=== PATIENT | female | born 1950 | race Two or more races ===

== ENCOUNTER 2019-12-14 06:12 | Day surgery (SDC) | payer MEDICARE, MEDICAID ==
[2019-12-14] VITALS (9 sets, daily range): BP systolic 115–167; BP diastolic 67–88
[~2019-12-14] VITALS: Ht 160 cm; Wt 81.6 kg
[~2019-12-14 06:12] MED LIST: AMBIEN5 MG ORAL; ATENOLOL25 MG ORAL; CELEBREX200 MG ORAL; LOSARTAN POTASS25 MG ORAL
[2019-12-14] MEDS: Tropicamide 1% Opth 15ml Soln RIGHT EYE SCH ×3 (06:36→06:51)
[2019-12-14] MEDS: Phenylephrine 10% Opth Soln 5ml RIGHT EYE SCH ×3 (06:36→06:51)
[2019-12-14] MEDS: Diclofenac Sod 0.1% Op Soln RIGHT EYE SCH ×3 (06:36→06:51)
[2019-12-14] MEDS: Akten 3.5% 1ml Btl RIGHT EYE SCH ×3 (06:37→06:51)
[2019-12-14] MEDS: Vigamox Opth Soln 3ml RIGHT EYE SCH ×3 (06:37→06:51)
[2019-12-14] MEDS ORDERED: EPINEPHrine 1mg/1ml Amp ONE (06:55)
[2019-12-14] MEDS ORDERED: Dexamethasone 4mg/ml vial ONE (06:56)
[2019-12-14] MEDS ORDERED: BSS 500ml btl ONE (06:56)
[2019-12-14] MEDS ORDERED: Lidocaine 1% MPF 10mg/ml 5ml ONE (06:56)
[2019-12-14] MEDS ORDERED: Carbachol 0.01% Op Soln 1.5ml vial ONE (06:56)
[2019-12-14] MEDS ORDERED: Sodium Hyaluronate 10 mg/ml 0.85ml ONE (06:57)
[2019-12-14] MEDS ORDERED: BSS 15ml BTL ONE (06:57)
[2019-12-14] MEDS ORDERED: Povidone-Iodine 5% opth solution ONE (06:57)
[2019-12-14] MEDS ORDERED: Tetracaine 0.5% Opth 4ml Soln ONE (06:57)
[2019-12-14] MEDS ORDERED: Sterile Water Irrig 1000ml IRRIG ONE (07:00)
[2019-12-14] MEDS ORDERED: NS Irrig 1000ml ONE (07:00)
[2019-12-14] MEDS ORDERED: LR 1000ml ONE (07:00)
[2019-12-14] MEDS ORDERED: Propofol 200mg/20ml IV ONE (07:00)
[2019-12-14] MEDS ORDERED: fentaNYL 100 mcg/2 mL IV ONE (07:02)
[2019-12-14] MEDS ORDERED: Midazolam 2mg/2ml Inj ONE (07:03)
[2019-12-14] MEDS ORDERED: LR 1000ml 1,000 ML IVLG SCH (07:46)
--- NOTE | 2019-12-14 07:46 | Anethesia Preoperative Eval ---
Anesthesia Pre-op PMH/ROS General Date of Evaluation: Dec 14, 2019 Time of Evaluation: 07:12 Anesthesiologist: Rica ASA Score: ASA 2 Mallampati Score Class I : Soft palate, uvula, fauces, pillars visible Class II: Soft palate, uvula, fauces visible Class III: Soft palate, base of uvula visible Class IV: Only hard plate visible Mallampati Classification: Class II Surgeon: Nickie Diagnosis: R eye cataract Surgical Procedure: Cataract extraction Anesthesia History: none Family History: no anesthesia problems Allergies: Coded Allergies: No Known Allergies (Unverified , 12/14/19) Medications: see eMAR Patient NPO?: Yes Past Medical History Cardiovascular: Reports: HTN - stable; Denies: CAD, ID, valve dz, arrhythmia, other Pulmonary: Denies: asthma, COPD, DENIA, other Gastrointestinal/Genitourinary: Reports: GERD; Denies: CRI, ESRD, other Neurologic/Psychiatric: Denies: dementia, CVA, depression/anxiety, TIA, other Endocrine: Denies: DM, hypothyroidism, steroids, other HEENT: Reports: cataract (L), cataract (R); Denies: glaucoma, KLAMATH (L), KLAMATH (R), other Hematology/Immune: Denies: anemia, DVT, bleeding disorder, other Musculoskeletal/Integumentary: Reports: OA; Denies: RA, DJD, DDD, edema, other Other: other - oveerweight PMH Narrative: as above PSxH Narrative: Hysterectomy Anesthesia Pre-op Phys. Exam Physician Exam Last Vital Signs Date Time Temp Pulse Resp B/P (MAP) Pulse Ox O2 Delivery O2 Flow Rate FiO2 12/14/19 06:49 Room Air 12/14/19 06:46 98.8 65 18 167/88 95 Constitutional: NAD Neurologic: CN 2-12 intact Cardiovascular: RRR, no M/R/G Respiratory: CTA Gastrointestinal: S/NT/ND Airway Exam Mallampati Score: Class II MO: limited Neck: stiff ROM: limited Teeth: missing Dentures: no upper, no lower Anesthesia Pre-op A/P Labs see chart Studies Pre-op Studies: EKG - Sr Risk Assessment & Plan Assessment: ASA 2 Plan: MAC Status Change Before Surgery: No Pre-Antibiotics Drug: none Vishal Strauss MD Dec 14, 2019 07:46
[2019-12-14] MEDS ORDERED: fentaNYL 100 mcg/2 mL IV PRN (08:00)
--- NOTE | 2019-12-14 08:06 | Immediate Post-Op Evaluation ---
Immediate Post-Op Evalulation Immediate Post-Op Evalulation Procedure: R eye cataract extraction with IOL Date of Evaluation: Dec 14, 2019 Time of Evaluation: 08:05 IV Fluids: 200 Blood Products: none Estimated Blood Loss: none Urinary Output: none Blood Pressure Systolic: 134 Blood Pressure Diastolic: 76 Pulse Rate: 72 Respiratory Rate: 20 O2 Sat by Pulse Oximetry: 98 Temperature (Fahrenheit): 97.5 Pain Score (1-10): 1 Nausea: No Vomiting: No Complications none Patient Status: awake, patent, none Hydration Status: adequate Vishal Strauss MD Dec 14, 2019 08:06
--- NOTE | 2019-12-14 08:07 | Pre-Procedure Note/Attestation ---
Pre-Procedure Note/Attestation Complete Prior to Procedure Planned Procedure: right Procedure Narrative: 1-Cataract extraction, right eye 2- Limbal relaxation incision ( LRI ), right eye Indications for Procedure Pre-Operative Diagnosis: 1- Catarct right eye. 2- Astigmatism , right eye. Attestation I attest that I discussed the nature of the procedure; its benefits; risks and complications; and alternatives (and the risks and benefits of such alternatives ), prior to the procedure, with the patient (or the patient's legal customer loyalty representative). I attest that, if there was a reasonable possibility of needing a blood transfusion, the patient (or the patient's legal customer loyalty representative) was given the [place] Department [employer] Services standardized written summary, pursuant to the Alli Friedenswald Blood Safety Act ([place] Health and Safety Code # 1645, as amended). I attest that I re-evaluated the patient just prior to the surgery and that there has been no change in the patient's H&P, except as documented below: Aftab Fu MD Dec 14, 2019 08:07
--- NOTE | 2019-12-14 08:10 | Discharge Summary ---
Discharge Summary Discharge Summary Discharge Summary DATE OF ADMISSION: 12/14/2019 DATE OF DISCHARGE:12/14/2019 REASON FOR HOSPITALIZATION: 1- cataract right eye 2- Astigmatism right eye SURGERY PERFORMED: 1- Cataract extraction 2- LRI right eye CONDITION IN THE HOSPITAL:The patient tolerated the surgery without complications. DISCHARGE CONDITION: The patient was stable at discharge. DISCHARGE MEDICATIONS: 1. Vigamox eye drops one drop q.i.d, OD 2. Prednisolone one drop q.i.d, OD 3. Prolensa QD, OD POSTOPERATIVE ORDERS: The patient has to rest at home. No bending, No lifting, No watching Television tonight. POSTOPERATIVE FOLLOW UP: The patient will be followed in my office tomorrow morning at 7 o'clock. Aftab Fu MD Dec 14, 2019 08:10
--- NOTE | 2019-12-14 08:13 | Brief Operative Note ---
Immediate Post Operative Note Operative Note Chief Complaint: Blurry right eye, difficulty driving Pre-op Diagnosis: 1- Catarct right eye. 2- Astigmatism , right eye. Procedure: 1- Cataract extraction with phaco and PC IOL implantation, right eye 2- Limbal Relaxing Incision ( LRI ), right eye. Post-op Diagnosis: same as pre-op Surgeon: Aftab Fu MD Set Up Mechanic Crown Assembly Machine: None Additional Surgeons: None Anesthesiologist: Dr. Strauss Anesthesia: MAC Specimen: none Complications: none Condition: stable Fluids: 300ml Estimated Blood Loss: none Drains: none Implant(s) used?: Yes - Monofocal PC IOL implanted in the right eye without complication Aftab Fu MD Dec 14, 2019 08:13
[2019-12-14] MEDS ORDERED: acetaZOLAMIDE 125mg tab ORAL SCH (08:30)
--- NOTE | 2019-12-14 09:17 | 48 Hour Post Anesthesia Eval ---
Post Anesthesia Evaluation Procedure: R eye cataract extraction with IOL Date of Evaluation: Dec 14, 2019 Time of Evaluation: 09:16 Blood Pressure Systolic: 132 0: 74 Pulse Rate: 68 Respiratory Rate: 20 Temperature (Fahrenheit): 97.6 O2 Sat by Pulse Oximetry: 98 Airway: patent Nausea: No Vomiting: No Pain Intensity: 1 Hydration Status: adequate Cardiopulmonary Status: stable Mental Status/LOC: patient returned to baseline Follow-up Care/Observations: n/a Post-Anesthesia Complications: none Follow-up care needed: ready to discharge Vishal Strauss MD Dec 14, 2019 09:17
--- NOTE | 2019-12-15 16:00 | Operative Note - Dictated ---
DATE OF OPERATION: 12/14/2019 FACILITY: [facility]. SURGEON: Aftab Fu M.D. PROJ MGR: None. ANESTHESIOLOGIST: Vishal Strauss M.D. ANESTHESIA: Monitored anesthesia care (MAC). PREOPERATIVE DIAGNOSES: 1. Cataract, right eye. 2. Astigmatism, right eye. POSTOPERATIVE DIAGNOSES: 1. Cataract, right eye. 2. Astigmatism, right eye. SURGERY PERFORMED: 1. Cataract extraction with phacoemulsification and posterior chamber intraocular lens implantation, right eye. 2. Limbal relaxing incision (LRI) right eye. INDICATION FOR SURGERY: The patient is a 69-year-old lady with history of high blood pressure and cancer. The patient is not a smoker, not a drinker. The patient is , is retired, and lives with her family. She has had ovarian cyst removal in 1995. She is taking medications including Celebrex 200 mg, hydroxyzine hydrochloride 10 mg, and is also on hydrochlorothiazide 50/12.5 mg, 10 mg, gabapentin 300 mg. She has no allergies to any medications. She is complaining of blurred vision in the right eye. On examination of the right eye, the cornea is clear. Anterior chamber is clean and quiet, bit shallow. Pupillary reflexes normal. There is no RAPD. There is 4+ nuclear sclerosis and 2+ cortical cataract. Funduscopy showed normal optic disc. There are some confluent drusen in both macula. Peripheral retina is flat. To improve her vision in the right eye, the cataract has to be removed, posterior chamber intraocular lens has to be implanted, and astigmatism has to be addressed as well. INFORMED CONSENT: The nature of the surgery, risks, benefits, alternatives, and potential complications were all explained in detail to the patient in her language, Maori through a business systems developer. The potential complications including, but not limited to bleeding, infection, posterior capsular rupture, lens subluxation, flat anterior chamber, iris prolapse, uveitis, corneal edema, macular edema, endophthalmitis, retinal detachment, loss of vision, loss of the eye, and even were all explained in detail to the patient. The patient voiced her understanding and accepted all the complications. The alternatives including accommodating lens, multifocal lens, toric lens, and conventional cataract surgery with limbal relaxing incision were all explained in detail to the patient. The patient voiced understanding. The patient elected to have only conventional cataract surgery with limbal relaxing incision. Then, she signed the consent form, which is in the chart. DESCRIPTION OF SURGERY AND FINDINGS: Following that, the patient was taken to the operation room in stable condition. Lidocaine gel Akten 3.5% were applied to the conjunctiva of the right eye. IV sedation was given by the anesthesiologist, Dr. Strauss. After adequate anesthesia and sedation had been achieved, the right eye was prepped and draped in a sterile fashion for intraocular surgery. Following that, a speculum was placed in the right eye. Before the patient was taken to the operation room, the cornea was marked at 180 and 90 degree meridian. In the operating room, using a corneal marker and marking pen, the steep meridian of the cornea was marked. Following that, we used a ishaan knife with 550 micron blade, two parallel incisions were placed on the steep meridian to treat the astigmatism. Following that, using a Super Sharp knife, a clear corneal side port was created. 1% lidocaine without preservative (MPF) was injected into the anterior chamber. Viscoelastic agent, Healon was injected into the anterior chamber. Following that, using a 2.8 mm keratome, clear corneal temporal keratotomy was performed. Following that, viscoelastic agent was injected into the anterior chamber again. Under the viscoelastic agent, an anterior capsulotomy was performed in the fashion of capsulorrhexis beautifully. Following that, whole viscoelastic agent was removed from the anterior chamber. Following that, using balanced salt solution, hydrodissection and hydrodelineation was performed and the nucleus was freed. Following that, viscoelastic agent Healon was injected into the anterior chamber to protect the endothelium of the cornea. Following that, using a phacoemulsification machine in the fashion of horizontal chop, the nucleus was removed in toto. Cortical material was removed from the capsular bag using irrigation aspiration unit. Following that, the capsular bag was polished. Following that, the capsular bag was filled with viscoelastic agent, Healon. Following that, a +23.5 diopter PCB00 foldable IOL with serial number [id number] was injected into the capsular bag. Using a Sinskey hook, the lens was manipulated within the proper position. Following that, all the viscoelastic agent was removed from the anterior and posterior part of the lens and the anterior chamber was filled with balanced salt solution. The wound was hydrated with balanced salt solution. The wound was checked for leakage and there was no leakage. Vigamox eye drops were applied to the conjunctiva of the right eye. The patient tolerated the surgery without complications. At the end of the surgery, the eye was patched with a clear sterile fenestrated shield. Following that, the patient was transferred to the recovery room. In the recovery room, 125 mg Diamox was given by mouth stat. Postoperative orders and directions were given to the patient. The patient will be discharged home upon stabilization. The patient will be followed in my office tomorrow morning. Aftab Fu M.D. DR: SONIA JOB#: [id number] CC:
== END 2019-12-14 09:30 | disposition home or self-care (01) ==
LOC: SUR 06:12
DX: H25.11 Age-related nuclear cataract, right eye (principal); H25.011 Cortical age-related cataract, right eye; H52.221 Regular astigmatism, right eye; I10 Essential (primary) hypertension; K21.9 Gastro-esophageal reflux disease without esophagitis; M19.90 Unspecified osteoarthritis, unspecified site; E66.3 Overweight; Z68.31 Body mass index [BMI] 31.0-31.9, adult; Z90.710 Acquired absence of both cervix and uterus
CPT/HCPCS: 66984; 66999; J0171; J1100; J2250; J2704; J3010; J7120; V2632; 94003; 94150